=== PATIENT | male | born 1945 | race Caucasian/White ===

== ENCOUNTER → 2016-08-06 | Outpatient (CLI) | payer OTHER | LOC: FIMAGING 14:22 | PROVIDERS: ATTEND Internal Medicine | DX: Z13.820 Encounter for screening for osteoporosis (principal); M85.80 Other specified disorders of bone density and structure, unspecified site; E21.3 Hyperparathyroidism, unspecified; C61 Malignant neoplasm of prostate ==

== ENCOUNTER → 2018-03-22 | Outpatient (CLI) | payer OTHER | LOC: FIMAGING 13:03 | PROVIDERS: ATTEND Internal Medicine | DX: Z13.820 Encounter for screening for osteoporosis (principal); M85.89 Other specified disorders of bone density and structure, multiple sites; E21.3 Hyperparathyroidism, unspecified ==